=== PATIENT | female | born 1945 | race Caucasian/White ===

== ENCOUNTER 2020-08-06 09:41 | Emergency (ER) | payer MEDICARE, SELFPAY ==
[2020-08-06 09:42] VITALS: BP 155/76; PULSE 117; RESP 19; TEMP 36.1; O2SAT 95; BMI 20.1
--- NOTE | 2020-08-06 10:12 | CT_ITS ---
STUDY: CT BRAIN WITHOUT CONTRAST REASON FOR EXAM: Female, 74 years old. FALL DOWN 6 STAIRS, BLOOD IN EYES AND NOSE, PUPILS NO-REACTIVE RADIATION DOSAGE (If Supplied By Facility): CTDIvol = ( 44.99 ) mGy, DLP = ( 846.73 ) mGycm TECHNIQUE: Transaxial CT imaging of the brain was performed without administration of intravenous contrast material. Individualized dose optimization techniques were used for this CT. COMPARISON: Comparison is made with prior examination dated 10/08/2017. FINDINGS: Normal calvarium. There is moderate cerebral atrophy with widening of the extra-axial spaces and ventricular dilatation. There are areas of decreased attenuation within the white matter tracts of the supratentorial brain, consistent with microvascular disease changes. Normal basal ganglia and thalami. Normal brainstem. There is mild cerebellar atrophy. There is no intracranial hemorrhage. There are no findings of an acute ischemic infarction. Atherosclerotic plaque formation of the vertebral arteries and cavernous portions of the internal carotid arteries bilaterally. Opacification of the ethmoid sinuses. Comminuted depressed nasal fracture. Soft tissue swelling overlying the nasal region as well as the premaxillary regions bilaterally. CT/Brain/Head without Contrast IMPRESSION: Chronic involutional changes of the brain. Comminuted depressed fracture of the nasal bones involving the nasal septum with the soft tissue swelling and partial opacification of the ethmoid sinuses. Electronically Signed: Surinder Caro, at 11:01 EDT , Service support ,
--- NOTE | 2020-08-06 10:13 | CT_ITS ---
STUDY: CT ABDOMEN AND PELVIS WITH CONTRAST REASON FOR EXAM: Female, 74 years old. FALL DOWN 6 STAIRS, BLOOD IN EYES AND NOSE, PUPILS NO-REACTIVE RADIATION DOSAGE (If Supplied By Facility): CTDIvol = ( 12.16 ) mGy, DLP = ( 558.26 ) mGycm TECHNIQUE: Transaxial images were obtained from the dome of the diaphragm to the symphysis pubis without oral contrast. IV 100mL Isovue-370 was administered. Sagittal and coronal images were reconstructed. Individualized dose optimization techniques were used for this CT. COMPARISON: None. FINDINGS: The visualized lung bases are unremarkable. Coronary artery calcification. Normal liver. Normal gallbladder and extrahepatic biliary system. Normal spleen. Normal pancreas. Normal bilateral adrenal glands. 1 cm cyst in the anterior aspect of the right kidney. Nonobstructive right intrarenal calculi. The patient is status post left nephrectomy. Normal visualized stomach. Normal small intestine. Normal colon. The appendix is visualized and appears normal. There is diffuse atherosclerotic calcification of the abdominal aorta and its major visceral branches. There is evidence of a fusiform infrarenal abdominal aortic aneurysm with a transverse dimension of 4.5 cm. Mural thrombus is seen. Normal inferior vena cava. Normal retroperitoneum. Normal urinary bladder. There is absence of the uterus consistent with a prior hysterectomy. Normal abdominal wall. Grade 1 anterior listhesis of L5 on S1 without spondylolysis. CT/Abdomen/Pelvis W IV Cont ONLY IMPRESSION: Infrarenal abdominal aortic aneurysm with mural thrombus. The aneurysm measures 4.5 cm. Status post left nephrectomy. Electronically Signed: Surinder Caro, at 11:13 EDT , Service support ,
--- NOTE | 2020-08-06 10:15 | CT_ITS ---
STUDY: CTA CHEST REASON FOR EXAM: Female, 74 years old. FALL DOWN 6 STAIRS, BLOOD IN EYES AND NOSE, PUPILS NO-REACTIVE RADIATION DOSAGE (If Supplied By Facility): CTDIvol = ( 17.05 ) mGy, DLP = ( 353.70 ) mGycm TECHNIQUE: The examination was performed with the intravenous administration of IV 100mL Isovue-370. Post-processing of the angiographic images was performed, with multiplanar reformation and 3D reconstruction. Individualized dose optimization techniques were used for this CT. COMPARISON: None. FINDINGS: Normal enhancement of the main pulmonary artery and right and left pulmonary arteries. Normal enhancement of the bilateral peripheral pulmonary arteries. There is no demonstrated pulmonary embolism. There is atherosclerotic calcification of the aortic arch and descending thoracic aorta with tortuosity. There is no demonstrated aortic dissection. There are calcifications of the coronary arteries. Normal mediastinum. Normal hilar regions. Normal visualized trachea and bronchi. Hyperinflation. Bullous formation in the right lung apex and right upper lobe. Emphysematous changes. No focal consolidation or mass lesion is seen. Normal pleura. Normal chest wall structures. There are degenerative changes of thoracic spine. Status post left nephrectomy. CT/CTA Chest W/WO Contrast IMPRESSION: Hyperinflation and emphysematous changes worse in the right lung apex and right upper lobe. Electronically Signed: Surinder Caro, at 11:15 EDT , Service support ,
--- NOTE | 2020-08-06 10:15 | CT_ITS ---
STUDY: CT CERVICAL SPINE WITHOUT CONTRAST REASON FOR EXAM: Female, 74 years old. FALL DOWN 6 STAIRS, BLOOD IN EYES AND NOSE, PUPILS NO-REACTIVE RADIATION DOSAGE (If Supplied By Facility): CTDIvol = ( 14.72 ) mGy, DLP = ( 294.93 ) mGycm TECHNIQUE: High resolution transaxial imaging was performed without contrast material. Sagittal and coronal images were reconstructed. Individualized dose optimization techniques were used for this CT. COMPARISON: Comparison is made with prior examination dated 10/08/2017. FINDINGS: Normal craniovertebral junction. There are degenerative changes of the anterior atlantoaxial articulation. Normal odontoid process. Normal cervical lordosis. Normal vertebral bodies and posterior osseous elements. C2-3: Normal endplates. Normal disc height and morphology. Normal central canal and intervertebral neuroforamina. C3-4: Minimal anterior listhesis of C3 on C4 most likely secondary to the facet joint osteoarthritis. Uncovertebral arthrosis. No significant stenosis is seen. C4-5: Marked degree of disc space narrowing and spondylosis. Uncovertebral arthrosis. Mild degree of bilateral neural foraminal stenosis. C5-6: Marked degree of disc space narrowing with spondylosis. Uncovertebral arthrosis. Bilateral neural foraminal stenosis worse on the left side. Minimal retrolisthesis of C5 on C6. C6-7: Mild degree of disc space narrowing. Mild facet joint osteoarthritis. C7-T1: Normal endplates. Normal disc height and morphology. Normal central canal and intervertebral neuroforamina. Normal visualized soft tissue structures. CT/Spine Cervical without Contras IMPRESSION: Multilevel degenerative changes, as described above. Electronically Signed: Surinder Caro, at 11:07 EDT , Service support ,
--- NOTE | 2020-08-06 10:28 | CT_ITS ---
STUDY: CT FACIAL BONES WITHOUT CONTRAST REASON FOR EXAM: Female, 74 years old. FALL DOWN 6 STAIRS, BLOOD IN EYES AND NOSE, PUPILS NO-REACTIVE RADIATION DOSAGE (If Supplied By Facility): CTDIvol = ( 29.38 ) mGy, DLP = ( 547.46 ) mGycm TECHNIQUE: The patient was scanned in a multi detector CT scanner. Sagittal and coronal images were reconstructed. Individualized dose optimization techniques were used for this CT. COMPARISON: None. FINDINGS: Soft tissue swelling. Normal orbital bustos and orbital contents. Comminuted depressed fracture of the nasal bones as well as the nasal septum. Normal facial bones. Opacification of the ethmoid sinus. CT/Sinus/Facial Bone IMPRESSION: Comminuted depressed nasal bone fracture with involvement of the nasal septum. Opacification of the ethmoid sinuses. Electronically Signed: Surinder Caro, at 11:09 EDT , Service support ,
--- NOTE | 2020-08-06 10:33 | ED.VISSUMM ---
- ER Visit Summary Date of Service: 08/06/20 Chief Complaint: [Fall] History of Present Illness: The patient is a 74 F [presents to the emergency department after sustaining a fall down a flight of steps. Patient fell about 6 or 7 steps in the home that were carpeted. Patient has history of dementia and lives with her son. She complains of head neck pain. She presented backboarded and C-collared by EMS. Patient not on any blood thinners. She denies chest or back pain. Patient has history of dementia, chronic kidney disease.] Physical Examination: [HEENT-PERRLA, EOMI. Cranial nerves II through XII grossly intact. TMs clear. Mucous membranes moist. No adenopathy. Patient has C-spine tenderness on palpation diffusely. Patient has obvious trauma to the upper face with large complex laceration involving the bridge of the nose onto the right cheek as well as on of the forehead. Patient has blood from both naris with no evidence of septal hematoma noted. Cardiovascular-regular rate and rhythm without murmur or ectopy Lungs-clear to auscultation, chest wall stable without crepitus or subcu emphysema Abdomen-normoactive bowel sounds, soft. Patient has diffuse tenderness palpation of the abdomen. Patient has tenderness over the liver. No rebound, rigidity, or pedal signs. Extremities-intact ?4, normal range of motion, normal pulses, atraumatic] Test Results: [CBC with differential obtained showing a 7.1, hemoglobin 10.7, hematocrit 34, platelets 207. Troponin less than 0.015. BUN was 52 and creatinine 2.22. Glucose 137. CT scan of the brain without contrast showed a depressed nasal bone fracture that involves the septum. CT of the C-spine showed degenerative changes. CT of the abdomen and pelvis showed an infrarenal abdominal aortic aneurysm measuring 4.5 cm. Patient also had a CT of the chest that showed some hyperinflation. CT of the facial bones again showed the nasal fracture involving the septum.] Emergency Department Course and Treatment: [IV line established on arrival. Patient was given normal saline. Patient given Ancef 1 g IV and ordered Adacel tetanus booster.] Treatment Plan: [Given patient's age and mechanism I feel she would best be served at a trauma center for definitive care. Her sons in agreement and would like to go to [facility].] This was discussed with Dr. Villaseñor who accepted transfer of patient. Disposition: [Transfer to [facility]] Impression: [Geriatric trauma Closed head injury Nasal bone fracture-open Complex facial lacerations Abdominal contusion] This note was generated with [employer] dictation software. It may contain incorrect words, spelling, and punctuation that were not noted in review of the chart prior to signing ED Disposition - Plan for ED Patient: Referrals: Frankie Thorpe MD [Primary Care Provider] -
[2020-08-06 10:43] LABS: Absolute Lymphocyte Count 0.98 X10^3/uL (0.83-4.51); Absolute Neutrophil Count 5.4 X10^3/uL (2.0-7.7); Basophil# 0.04 X10^3/uL; Basophil% 0.6 % (0-1); Eosinophils% 1.4 % (0-5); Hematocrit 33.9 % (37-47); Hemoglobin 10.7 g/dL (12.0-15.0); Lymphocyte # 0.98 X10^3/ul (4.0); Lymphocyte % 13.8 % (19-41); Mean Corp Hgb Conc 31.6 g/dL (32-36); Mean Corpuscular Hgb 31.6 pg (27.0-32.0); Mean Platelet Vol. 10.9 fl (6.2-12.0); Monocyte# 0.57 X10^3/uL; NRBC Flagged by Analyzer 0 % (0-5); Neutrophil % 75.8 % (47-70); Platelet Count 207 K/mm3 (150-450); RBC Distribution Width CV 13.3 % (11.6-14.6); Red Blood Count 3.39 M/mm3 (4.2-5.4); White Blood Count 7.1 K/mm3 (4.4-11.0)
[2020-08-06 10:48] LABS: ALB/GLOB Ratio 0.8 RATIO (0.9-2.4); AST(SGOT) 24 U/L (15-37); Alanine Aminotransfer ALT/SGPT 18 U/L (13-56); Albumin, Serum 3.2 g/dL (3.2-5.0); Alkaline Phosphatase 63 U/L (45-117); Anion Gap 6 (5-15); BUN 52 mg/dL (7-18); BUN/Creat Ratio 23.4 RATIO (10-20); Calcium,Total 9.1 mg/dL (8.5-10.1); Chloride 113 mmol/L (98-107); Creatinine, Serum 2.22 mg/dL (0.55-1.02); EST Glomerular Filtration Rate 23 mL/min (>60); Est Glom Filt Rate - Afr Amer 28 mL/min (>60); Globulin 4.1 g/dL (2.2-4.2); Glucose 137 mg/dL (74-106); Potassium 4.5 mmol/L (3.5-5.1); Protein, Total 7.3 g/dL (6.4-8.2); Sodium Level 143 mmol/L (136-145)
[2020-08-06 10:53] LABS: Partial Thromboplast Time 22.5 Seconds (24.1-36.2); Prothrombin Time (Protime)PT. 13.2 SECONDS (11.7-14.9)
--- NOTE | 2020-08-06 11:23 | EKG12_ITS ---
Test Reason : TRAUMA Blood Pressure : / mmHG Vent. Rate : 113 BPM Atrial Rate : 113 BPM P-R Int : 136 ms QRS Dur : 072 ms QT Int : 332 ms P-R-T Axes : 065 036 079 degrees QTc Int : 455 ms Sinus tachycardia Possible Left atrial enlargement Borderline ECG Confirmed by ALFONSO JONES, DEMETRIUS ([id number]), inspector screen printing JARRET FINNEY ([id number]) on 08/11/2020 12:23:21 PM Referred By: LESVIA Confirmed By:DEMETRIUS HAMILTON MD
--- NOTE | 2020-08-06 11:28 | NURSING ---
CALLED [facility] FOR TRANSFER.
--- NOTE | 2020-08-06 11:46 | NURSING ---
[facility] [address] NURSE TO NURSE [phone]
[2020-08-06] MEDS: Diphth,Pertuss(Acell),Tet Vac 0.5 ML Vial IM (12:22)
[2020-08-06] MEDS: 0.9% Normal Saline 1,000 ML 150 ML IV (12:22)
[2020-08-06] MEDS: Cefazolin 1 GM/50 ML BAG IV (12:23)
[2020-08-06 12:29] VITALS: BP 148/72; PULSE 112; RESP 15; O2SAT 95
[2020-08-06 13:28] VITALS: BP 155/72; PULSE 124; RESP 13; O2SAT 97
[2020-08-06 14:15] VITALS: PULSE 124
== END 2020-08-06 14:15 | disposition home or self-care (01) ==
PROVIDERS: Emergency Provider Emergency Medicine; PCP Family Medicine
DX: S02.2XXB Fracture of nasal bones, initial encounter for open fracture (principal); S30.1XXA Contusion of abdominal wall, initial encounter; S01.411A Laceration without foreign body of right cheek and temporomandibular area, initial encounter; S01.81XA Laceration without foreign body of other part of head, initial encounter; F03.90 Unspecified dementia, unspecified severity, without behavioral disturbance, psychotic disturbance, mood disturbance, and anxiety; N18.9 Chronic kidney disease, unspecified; I71.4 Abdominal aortic aneurysm, without rupture; Z23 Encounter for immunization; W10.8XXA Fall (on) (from) other stairs and steps, initial encounter; Y93.01 Activity, walking, marching and hiking; Y92.009 Unspecified place in unspecified non-institutional (private) residence as the place of occurrence of the external cause; Y99.8 Other external cause status
CPT/HCPCS: 70450; 70486; 71275; 72125; 74177; 80053; 84484; 85025; 85610; 85730; 90715; 93005; 96365; 99285; J7030; J7040; Q9967; A4216